=== PATIENT | male | born 1965 | race Caucasian/White ===

== ENCOUNTER 2022-03-01 12:55 | Emergency (ER) | payer OTHER ==
[2022-03-01 13:55] VITALS: BP 163/97; PULSE 81; TEMP 98; BMI 30.7
[2022-03-01] MEDS ORDERED: KETOROLAC TROMETHAMINE 30 MG/1 ML VIAL IM ONE (14:26)
== END 2022-03-01 16:34 | disposition home or self-care (01) ==
LOC: JERFT 12:55
PROC: 3E0233Z Introduction of Anti-inflammatory into Muscle, Percutaneous Approach (ICD-10-PCS; principal; 2022-03-01)
DX: M54.41 Lumbago with sciatica, right side (principal)
CPT/HCPCS: 99284-25

== ENCOUNTER 2022-04-26 14:28 | Emergency (ER) | payer OTHER ==
[2022-04-26 14:44] VITALS: BP 158/80; PULSE 80; TEMP 97.8; BMI 30.7
[2022-04-26] MEDS ORDERED: KETOROLAC TROMETHAMINE 30 MG/1 ML VIAL IM ONE (15:25)
[2022-04-26] MEDS ORDERED: KETOROLAC TROMETHAMINE 30 MG/1 ML VIAL ONE (15:39)
== END 2022-04-26 16:06 | disposition home or self-care (01) ==
LOC: JERFT 14:28
PROC: 3E0233Z Introduction of Anti-inflammatory into Muscle, Percutaneous Approach (ICD-10-PCS; principal; 2022-04-26)
DX: S39.92XA Unspecified injury of lower back, initial encounter (principal); Y99.9 Unspecified external cause status
CPT/HCPCS: 99284-25

== ENCOUNTER 2022-04-30 17:35 | Emergency (ER) | payer OTHER ==
[2022-04-30 18:21] VITALS: BP 162/92; PULSE 83; TEMP 98.4; BMI 30.7
[2022-04-30] MEDS ORDERED: KETOROLAC TROMETHAMINE 30 MG/1 ML VIAL IM ONE (20:01)
[2022-04-30] MEDS ORDERED: KETOROLAC TROMETHAMINE 30 MG/1 ML VIAL ONE (20:35)
== END 2022-04-30 21:45 | disposition home or self-care (01) ==
LOC: JERFT 17:35
PROC: 3E023GC Introduction of Other Therapeutic Substance into Muscle, Percutaneous Approach (ICD-10-PCS; principal; 2022-04-30)
DX: M51.26 Other intervertebral disc displacement, lumbar region (principal)
CPT/HCPCS: 72131-TC; 99284-25

== ENCOUNTER 2024-06-06 06:09 | Emergency (ER) | payer OTHER ==
[2024-06-06 06:16] VITALS: TEMP 96.8; BMI 38.7
[2024-06-06] MEDS ORDERED: MORPHINE SULFATE 2 MG/ML SYRINGE ONE (06:20)
[2024-06-06] MEDS ORDERED: ASPIRIN 325 MG TABLET ONE (06:22)
[2024-06-06] MEDS: morphine CARPU-JECT 4 MG/1 ML DISP.SYRIN IVPUSH ONE (06:28)
[2024-06-06] MEDS ORDERED: HEPARIN NA (PORCINE) 5,000 UNITS/ML 1ML VIAL IVPUSH PRN ×2 (06:28)
[2024-06-06 06:36] LABS: BASO % 0.9 % (0-2.0); EOS % 1.4 % (0-4.5); HEMATOCRIT 46.1 % (35.4-49); HEMOGLOBIN 15.6 GM/dL (11.7-16.9); LYMPH % 22.9 % (8-40); MCH 32.6 pg (25.7-33.7); MCHC 33.7 g/dl (32.0-35.9); MEAN CELL VOLUME 96.6 fl (80-96); MEAN PLT VOLUME 9.6 fl (7.5-11.1); MONO % 5.3 % (3.8-10.2); NEUT % 69.5 % (42.8-82.8); PLATELET COUNT 156 10^3/uL (134-434); RBC 4.77 M/mm3 (4.00-5.60); RDW 14.2 % (11.9-15.9); WHITE BLOOD COUNT 11.7 K/mm3 (4.0-10.0)
[2024-06-06] MEDS: HEPARIN INFUSION - 25,000 UNITS/500 ML INFUS.BAG IVPB SCH (06:38)
[2024-06-06] MEDS: HEPARIN NA (PORCINE) 5,000 UNITS/ML 1ML VIAL IVPUSH ONE (06:38)
[2024-06-06] MEDS ORDERED: TICAGRELOR 90 MG TABLET PO ONE (06:38)
[2024-06-06 06:42] LABS: INR 0.96 (0.83-1.09); PROTHROMBIN TIME (PATIENT) 10.9 SEC (9.7-13.0)
[2024-06-06] MEDS: TICAGRELOR 90 MG TABLET PO ONE (06:42)
[2024-06-06 06:45] LABS: ACTIVATED PTT 29.1 SECONDS (25.2-36.5)
[2024-06-06 06:58] LABS: CHLORIDE 102 mmol/L (98-107); POTASSIUM 3.6 mmol/L (3.5-5.1); SODIUM 136 mmol/L (136-145)
[2024-06-06 07:00] LABS: ANION GAP 10 mmol/L (4-13); BLOOD UREA NITROGEN 18.2 mg/dL (7-18); CALCIUM 8.5 mg/dL (8.5-10.1); CO2 23 mmol/L (21-32)
[2024-06-06 07:01] LABS: ALBUMIN 3.6 g/dl (3.4-5.0); GLUCOSE,RANDOM 358 mg/dL (74-106); MAGNESIUM 1.9 mg/dL (1.8-2.4)
[2024-06-06 07:04] LABS: CREATININE 1.3 mg/dL (0.55-1.3); SGOT/AST 54 U/L (15-37); SGPT/ALT 24 U/L (13-61)
[2024-06-06 07:05] LABS: BILIRUBIN,TOTAL 0.3 mg/dL (0.2-1); TOT PROT 6.5 g/dl (6.4-8.2)
[2024-06-06 07:06] LABS: ALK PHOS 140 U/L (45-117)
[2024-06-06 07:14] VITALS: BP 146/101; PULSE 101; RESP 22
== END 2024-06-06 07:15 | disposition short-term general hospital (02) ==
LOC: JER 06:09
DX: I21.3 ST elevation (STEMI) myocardial infarction of unspecified site (principal); R00.1 Bradycardia, unspecified
CPT/HCPCS: 36415; 80053; 82550; 82553; 83735; 84484; 85025; 85610; 85730; 86850; 86900; 86901; 93005; 93010; 99291; J1644